=== PATIENT | male | born 1940 | race Caucasian/White ===

== ENCOUNTER → 2020-07-25 | Outpatient (CLI) | payer MEDICARE ==
[~2020-07-25] MED LIST: ZESTRIL10 MG PO
== END ==
LOC: KOH-I 13:52
DX: M25.551 Pain in right hip (principal)
CPT/HCPCS: 73502; 73552

== ENCOUNTER → 2021-04-17 | Outpatient (CLI) | payer MEDICARE | LOC: KOH-I 04-10 11:15 | DX: R27.0 Ataxia, unspecified (principal); R90.82 White matter disease, unspecified | CPT/HCPCS: 70551 ==